=== PATIENT | male | born 1955 | race Caucasian/White ===

== ENCOUNTER 2017-07-09 17:11 | Emergency (ER) | payer SELFPAY ==
[~2017-07-09 17:11] MED LIST: Sodium Chloride Irrig Solution 250 ML BOT ONE
[2017-07-09] MEDS ORDERED: Lidocaine 2% w/Epinephrine 1:200K 20 ML VIAL ONE (17:37)
[2017-07-09] MEDS ORDERED: Adacel (T-DAP) 0.5 ML VIAL ONE (18:12)
[2017-07-09] MEDS ORDERED: HYDROcodone/Acetaminophen 10/325 mg Tablet ONE (18:20)
[2017-07-09] MEDS ORDERED: Clindamycin 150 MG CAP ONE (18:20)
[2017-07-09] MEDS ORDERED: Bacitracin Zinc 1 Packet ONE (18:33)
== END 2017-07-09 18:55 | disposition home or self-care (01) ==
LOC: MADERS 17:11
DX: L02.31 Cutaneous abscess of buttock (principal); F17.210 Nicotine dependence, cigarettes, uncomplicated
CPT/HCPCS: 10060; 90471; 90715